=== PATIENT | male | born 1970 | race Caucasian/White ===

== ENCOUNTER 2018-09-01 16:46 | Emergency (ER) | payer OTHER ==
[~2018-09-01] VITALS: Ht 185.4 cm; Wt 90.7 kg
[2018-09-01 17:04] VITALS: BP 153/92
[2018-09-01] MEDS ORDERED: HYDROcodone/APAP 10/325 1 TAB TABLET PO ONE (17:15)
[2018-09-01] MEDS ORDERED: LIDOCAINE 1% PF 2 ML VIAL. INJ ONE (17:15)
[2018-09-01] MEDS ORDERED: ONDANSETRON ODT 4 MG TAB.RAPDIS. PO ONE (17:15)
[2018-09-01] MEDS ORDERED: DIPHTH,PERTUSS(ACELL),TET TOX 0.5 ML DISP.SYRIN. VAX IM ONE ×2 (17:26→17:45)
[2018-09-01] MEDS ORDERED: MORPHINE SULFATE 10 MG/ML VIAL. IM ONE (18:15)
[2018-09-01] MEDS ORDERED: CEPHALEXIN 250 MG CAPSULE. PO ONE (18:30)
[2018-09-01] MEDS ORDERED: NEOMY/BACITR/POLYMYXIN OINT PACKET. TP ONE (19:30)
[2018-09-01] MEDS ORDERED: CEPH-264 PO (19:38)
--- NOTE | 2018-09-01 19:40 | PHYS DOC ---
Past Medical History Past Medical History: No Pertinent History (TASNEEM QIU) Past Surgical History: No Surgical History (TASNEEM QIU) Alcohol Use: None Drug Use: None (TASNEEM QIU) Adult General Chief Complaint Chief Complaint: LACERATION/AVULSION HPI HPI Patient is a 48 year old M who states he had his hand pulled into an Auger at work today a few hours prior to arrival. Pt has his hand bandaged and wrapped in duct tape. Pt is unsure of his last tetanus. (TASNEEM QIU) Review of Systems Review of Systems Constitutional: Denies fever or chills Respiratory: Denies cough or shortness of breath Cardiovascular: Denies chest pain. GI: Denies abdominal pain, nausea, vomiting, bloody stools or diarrhea : Denies dysuria or hematuria Musculoskeletal: Denies back pain. Reports L hand pain Integument: Denies rash or skin lesions. Reports hand laceration. Neurologic: Denies headache, focal weakness or sensory changes All other systems were reviewed and found to be within normal limits, except as documented in this note. (TASNEEM QIU) Current Medications Current Medications Current Medications Medications (Trade) Dose Ordered Sig/Chica Start Time Stop Time Status Last Admin Dose Admin Acetaminophen/ Hydrocodone Bitart (Lortab 10/325) 1 tab 1X ONCE 09/01/18 17:15 09/01/18 17:23 DC 09/01/18 17:30 1 TAB Cephalexin HCl (Keflex) 500 mg 1X ONCE 09/01/18 18:30 09/01/18 18:31 DC 09/01/18 18:30 500 MG Diphtheria/ Tetanus/Acell Pertussis (Boostrix) 0.5 ml ONCE ONCE 09/01/18 17:45 09/01/18 17:47 DC 09/01/18 17:57 0.5 ML Lidocaine HCl (Xylocaine-Mpf 1% 2ml Vial) 10 ml 1X ONCE 09/01/18 17:15 09/01/18 17:23 DC 09/01/18 17:30 10 ML Morphine Sulfate (Morphine Sulfate) 8 mg 1X ONCE 09/01/18 18:15 09/01/18 18:16 DC 4/24/19 18:29 8 MG Neomycin/ Polymyxin/ Bacitracin (Triple Antibiotic Ointment) 3 pkt 1X ONCE 09/01/18 19:30 09/01/18 19:31 DC 09/01/18 19:30 3 PKT Ondansetron HCl (Zofran Odt) 4 mg 1X ONCE 09/01/18 17:15 09/01/18 17:23 DC 09/01/18 17:30 4 MG (JENI DICKENS DO) Allergies Allergies Allergies Coded Allergies Type Severity Reaction Last Updated Verified No Known Drug Allergies 09/01/18 No (JENI DICKENS DO) Physical Exam Physical Exam Constitutional: Well developed, well nourished, no acute distress, non-toxic appearance. Neck: Normal range of motion, no tenderness, supple, no stridor. Cardiovascular:Heart rate regular rhythm, no murmur Lungs & Thorax: Bilateral breath sounds clear to auscultation Abdomen: Bowel sounds normal, soft, no tenderness, no masses, no pulsatile masses. Skin: Laceration of dorsal L hand Back: No tenderness, no CVA tenderness. Extremities: L hand tenderness but full ROM of fingers, thumb and wrist. Neurovascular intact. Neurologic: Alert and oriented X 3, normal motor function, normal sensory function, no focal deficits noted. Psychologic: Affect normal, judgement normal, mood normal. (TASNEEM QIU) Physical Exam Skin: Flap laceration of dorsal left hand Extremities: Tendon function intact to left hand, CR < 2 sec, Radial pulse +2, Sensation intact to all finger (JENI DICKENS DO) Current Patient Data Vital Signs Vital Signs Date Time Temp Pulse Resp B/P (MAP) Pulse Ox O2 Delivery O2 Flow Rate FiO2 09/01/18 17:04 98.4 99 20 153/92 (112) 98 Room Air 98.4 (JENI DICKENS DO) EKG EKG [] (TASNEEM QIU) Radiology/Procedures Radiology/Procedures No acute osseous findings. (TASNEEM QIU) Radiology/Procedures PROCEDURE: HAND LEFT 3V Three-view study left hand Clinical indications: Injury to left hand. Auger bit, left hand. Laceration injury. First and second metacarpal bones in distal to the PIP joint. FINDINGS: No acute fracture or dislocation or lytic process is seen. Soft tissue air is seen related to laceration injury. There is a small 2 mm accessory ossification center next to the first carpal metacarpal joint. Otherwise no radiopaque foreign body is evident. IMPRESSION: No acute osseous abnormality. Electronically signed by: Ming An MD (09/02/2018 8:16 AM) [facility] (JENI DICKENS DO) Course & Med Decision Making Course & Med Decision Making Pertinent Labs and Imaging studies reviewed. (See chart for details) Pt's hand was sutured by medical student Bridgett with Dr. Dickens supervision. See note of procedure. Pt tolerated well and then hand was wrapped and placed in OCL splint for comfort and to keep tension off stitches for a few days. Pt to have sutures removed in 10 days and close f/u with PCP for wound check. (TASNEEM QIU) Dragon Disclaimer Dragon Disclaimer This electronic medical record was generated, in whole or in part, using a voice recognition dictation system. (TASNEEM QIU) Splinting Splinting : Location: L hand Hand-Made Type: orthoglass Splint: volar Pre-Proc Neuro Vasc Exam: normal Post-Proc Neuro Vasc Exam: normal, unchanged from pre-exam (JENI DICKENS DO) Laceration/Wound Repair Laceration/Wound Repair : Wound Location: upper extremity (left hand) Wound's Depth, Shape: linear, flap Wound Explored: contaminated Irrigated w/ Saline (ccs): 200 Anesthesia: Lidocaine w/ Epi (2%) Volume Anesthetic (ccs): 3 Wound Debrided: minimal Wound Repaired With: sutures Suture Size/Type: 4:0 Number of Sutures: 19 Splint Applied?: Yes Type of Splint Applied: Volar Progress Verbal consent obtained. Time out performed. Wound cleaned with ChloraPrep. Copiously irrigated. Laceration repaired with 4-0 Nylon x 19 simple interrupted sutures. Wound dressed with Neosporin, Telfa, and Kerlix. Volar splint applied for protection of sutures. Patient tolerated procedure well and without difficulty. (JENI DICKENS DO) Departure Departure Impression: Primary Impression: Hand laceration Disposition: 01 HOME, SELF-CARE Condition: IMPROVED Referrals: NO PCP (PCP) Patient Instructions: Laceration Care, Adult, [id number] Additional Instructions: Neosporin daily. Antibiotics. Sutures out in 10 days. Wear the splint to keep the hand immobilized while healing. Return to ER with any worsening of symptoms. Scripts Cephalexin (KEFLEX) 500 Mg Capsule 1 CAP PO TID for 5 Days, #15 CAP Prov: TASNEEM QIU 09/01/18 Attending Signature Attending Signature I have personally interviewed and examined the patient. All charts, labs, and imaging studies were reviewed. I agree with the PA/DRY STARCH SUPERVISOR's findings, exam, and plan. (JENI DICKENS DO) TASNEEM QIU Sep 01, 2018 19:40 JENI DICKENS DO Sep 04, 2018 18:23
--- NOTE | 2018-09-02 08:19 | RAD ---
Three-view study left hand Clinical indications: Injury to left hand. Auger bit, left hand. Laceration injury. First and second metacarpal bones in distal to the PIP joint. FINDINGS: No acute fracture or dislocation or lytic process is seen. Soft tissue air is seen related to laceration injury. There is a small 2 mm accessory ossification center next to the first carpal metacarpal joint. Otherwise no radiopaque foreign body is evident. IMPRESSION: No acute osseous abnormality. Electronically signed by: Ming An MD (09/02/2018 8:16 AM) [place] [id number]
== END 2018-09-01 19:55 | disposition home or self-care (01) ==
LOC: ER 16:46
DX: S61.412A Laceration without foreign body of left hand, initial encounter (principal); X50.9XXA Other and unspecified overexertion or strenuous movements or postures, initial encounter; Y93.89 Activity, other specified; Y92.69 Other specified industrial and construction area as the place of occurrence of the external cause; Y99.0 Civilian activity done for income or pay
CPT/HCPCS: 12001; 73130; 90471; 90715; 96372; 99284; J2270; Q0162

== ENCOUNTER 2018-09-11 13:25 | Emergency (ER) | payer OTHER ==
[~2018-09-11] VITALS: Ht 185.4 cm; Wt 90.7 kg
[~2018-09-11 13:25] MED LIST: CEPH-264 PO
[2018-09-11 13:47] VITALS: BP 128/77
--- NOTE | 2018-09-11 13:58 | PHYS DOC ---
Past Medical History Past Medical History: No Pertinent History Past Surgical History: No Surgical History Alcohol Use: None Drug Use: None Adult General Chief Complaint Chief Complaint: SUTURE/STAPLE REMOVAL [facility] Patient is a 48 year old right-handed male who presents for suture removal. Patient had left hand laceration repair omn September 01 in this emergency room and presented for suture removal. Patient denies pain, discharge of the wound, erythema, fever and chills. Patient had tetanus immunization in his previous emergency room visit on September 01. Review of Systems Review of Systems Constitutional: Denies fever or chills [] Eyes: Denies change in visual acuity, redness, or eye pain [] HENT: Denies nasal congestion or sore throat [] Respiratory: Denies cough or shortness of breath [] Cardiovascular: No additional information not addressed in HPI [] GI: Denies abdominal pain, nausea, vomiting, bloody stools or diarrhea [] : Denies dysuria or hematuria [] Musculoskeletal: Denies back pain or joint pain [] Integument: Denies rash or skin lesions [] Neurologic: Denies headache, focal weakness or sensory changes [] Endocrine: Denies polyuria or polydipsia [] All other systems were reviewed and found to be within normal limits, except as documented in this note. Allergies Allergies Allergies Coded Allergies Type Severity Reaction Last Updated Verified No Known Drug Allergies 09/01/18 No Physical Exam Physical Exam Constitutional: Well developed, well nourished, no acute distress, non-toxic appearance. [] HENT: Normocephalic, atraumatic. Eyes: PERRLA, EOMI, conjunctiva normal, no discharge. [] Neck: Normal range of motion, no tenderness, supple, no stridor. [] Cardiovascular:Heart rate regular rhythm, no murmur [] Lungs & Thorax: Bilateral breath sounds clear to auscultation [] Skin: Warm, dry, no erythema, no rash. Left hand with multiple sutures with good healing on the dorsal of left hand without sign of infection. Back: No tenderness, no CVA tenderness. [] Extremities: No tenderness, no cyanosis, no clubbing, ROM intact, no edema. [] Neurologic: Alert and oriented X 3, normal motor function, normal sensory function, no focal deficits noted. [] Psychologic: Affect normal, judgement normal, mood normal. [] Current Patient Data Vital Signs Vital Signs Date Time Temp Pulse Resp B/P (MAP) Pulse Ox O2 Delivery O2 Flow Rate FiO2 09/11/18 13:47 98.8 85 16 128/77 (94) 97 Room Air 98.8 EKG EKG [] Radiology/Procedures Radiology/Procedures [] Course & Med Decision Making Course & Med Decision Making Evaluation of patient in ER showed 48-year-old male patient presented to ER for suture removal after 10 days of placement of sutures without having any complication. 19 sutures was removed by FREIGHT MANAGER without problem. Dragon Disclaimer Dragon Disclaimer This electronic medical record was generated, in whole or in part, using a voice recognition dictation system. Departure Departure Impression: Primary Impression: Encounter for removal of sutures Additional Impressions: Tobacco abuse Tobacco abuse counseling Disposition: HOME, SELF-CARE (@[id number]) Condition: STABLE Referrals: NO PCP (PCP) Patient Instructions: Smoking Cessation, Tips For Success, Suture Removal Additional Instructions: Keep wound clean and dry Problem Qualifiers LUCY SUNG MD September 11, 2018 13:58
== END 2018-09-11 14:11 | disposition home or self-care (01) ==
LOC: ER 13:25
DX: S61.412D Laceration without foreign body of left hand, subsequent encounter (principal); Z72.0 Tobacco use; Z71.6 Tobacco abuse counseling; X58.XXXD Exposure to other specified factors, subsequent encounter
CPT/HCPCS: 99281